=== PATIENT | male | born 1985 | race African-American/Black ===

== ENCOUNTER 2016-02-29 06:15 | Emergency (ER) | payer BC, OTHER ==
[~2016-02-29] VITALS: Ht 188 cm; Wt 111.1 kg
[~2016-02-29 06:15] MED LIST: NAPR550T PO; ORPH100T PO
--- NOTE | 2016-02-29 06:46 | ED.ADGEN ---
Past Medical History Past Medical History: No Pertinent History Past Surgical History: No Surgical History Alcohol Use: Occasionally Drug Use: Marijuana Adult General Chief Complaint Chief Complaint: ANKLE PROBLEM HPI HPI Patient is a 30 year old man, with no significant past medical history, who presents the emergency department with a complaint of left ankle pain for the past 8 days. Patient states that he slipped on ice walking down his outside steps last Tuesday, states that he slid down the stairs, and believes he twisted his ankle when he fell. He did not strike his head or neck, had no loss of consciousness, didn't strike his back but is denying any back pain. He states that he has been favoring the left ankle since that time, had immediate pain and swelling. He has been treating at home with ice and then hot compresses , has been using Tylenol, although has not taken any medication since last night. He states that he is allergic to ibuprofen. Denies any other injuries or complaints, denies any previous injuries to the ankle. He did scrape his ankle when he fell, his tetanus is up-to-date. Review of Systems Review of Systems Constitutional: Denies fever or chills. [] Eyes: Denies change in visual acuity. [] HENT: Denies nasal congestion or sore throat. [] Respiratory: Denies cough or shortness of breath. [] Cardiovascular: Denies chest pain or edema. [] GI: Denies abdominal pain, nausea, vomiting, bloody stools or diarrhea. [] : Denies dysuria. [] Musculoskeletal: Denies back pain, complaining of left ankle pain. Integument: Denies rash. [] Neurologic: Denies headache, focal weakness or sensory changes. [] Endocrine: Denies polyuria or polydipsia. [] Lymphatic: Denies swollen glands. [] Psychiatric: Denies depression or anxiety. [] Current Medications Current Medications Current Medications Medications (Trade) Dose Ordered Sig/Estephania Start Time Stop Time Status Last Admin Dose Admin Acetaminophen (Tylenol) 650 mg 1X ONCE 02/29/16 07:00 02/29/16 07:01 DC 02/29/16 06:38 650 MG Allergies Allergies Allergies Coded Allergies Type Severity Reaction Last Updated Verified ibuprofen Allergy Intermediate hives 10/10/15 Yes Physical Exam Physical Exam Constitutional: Well developed, well nourished, no acute distress, non-toxic appearance. [] HENT: Normocephalic, atraumatic, bilateral external ears normal, oropharynx moist, no oral exudates, nose normal. [] Eyes: PERRLA, EOMI, conjunctiva normal, no discharge. [] Neck: Normal range of motion, no tenderness, supple, no stridor. [] Cardiovascular:Heart rate regular rhythm, no murmur, S1, S2, rubs or gallops. [] Lungs & Thorax: Bilateral breath sounds clear to auscultation, no wheezing, rhonchi, rales. No chest wall tenderness or crepitus. [] Abdomen: Bowel sounds normal, soft, no tenderness, no rebound, no rigidity, no guarding, no masses, no pulsatile masses. [] Skin: Warm, dry, no erythema, no rash. [] Back: No no midline or paraspinal tenderness, no CVA tenderness. [] Extremities: Patient with swelling of the lateral aspect of the left ankle, well -healed abrasion located just below the lateral malleolus, no overlying cellulitis or evidence of infection, swelling extends into the dorsum of the foot especially on the left, patient does have pain with any motion of the ankle , also with palpation of the lateral malleolus, no cyanosis, no clubbing. No other injuries identified, no tenderness of the tib-fib region or the knee. Neurologic: Alert and oriented X 3, normal motor function, normal sensory function, no focal deficits noted. [] Psychologic: Affect normal, judgement normal, mood normal. [] Current Patient Data Vital Signs Vital Signs Date Time Temp Pulse Resp B/P Pulse Ox O2 Delivery O2 Flow Rate FiO2 02/29/16 06:36 98.8 103 20 95 Room Air 98.8 EKG EKG Not indicated. [] Radiology/Procedures Radiology/Procedures [] [facility] [address] [place] [address] IMAGING REPORT Signed PATIENT: ABBY GOMEZ ACCOUNT: [id number] : 1985 LOCATION: ER AGE: 30 SEX: M EXAM [id number] STATUS: REG ER ORD. PHYSICIAN: HERBER MATA DO REASON: Swelling, pain PROCEDURE: ANKLE LEFT 3V; TIBIA FIBULA LEFT Left ankle, 3 views, 02/29/2016: History: Swelling and pain No fracture or dislocation is identified. There is mild soft tissue swelling, particularly over the lateral malleolus. IMPRESSION: No acute bony abnormality is detected. Left tibia and fibula, 2 views, 02/29/2016: No fracture is identified. A small lucency in the medial tibial plateau is probably a subchondral cyst. Mild subcutaneous edema is noted in the lower leg. IMPRESSION: No acute bony abnormality is detected. DICTATED and SIGNED BY: ISACC JAMES MD DATE: 02/29/16 0719 CC: HERBER MATA DO; NO PCP ~ Course & Med Decision Making Course & Med Decision Making Pertinent Labs and Imaging studies reviewed. (See chart for details) Patient's examination is concerning for possible fracture versus high-grade sprain. X-rays obtained of the ankle and tib-fib, no evidence of fracture, soft tissue swelling is identified. I did discuss these findings with patient, he works driving a forklift, I instructed him that he would need to be nonweightbearing for at least the next 3-4 days, he was given crutch walking instructions and was able to crutch walk without issue in the ED. Due to the degree of sprain, the length of time, I gave him follow-up with orthopedics, instructed that he should be cleared by orthopedic returning to work. He has been using naproxen at home which she states has not been adequately controlling his pain, I instructed him to keep it elevated which will assist with the swelling, continue using naproxen, will also give a short course of Davis, patient was given clear and detailed return instructions also medication instructions, and follow-up as stated. Work note was given for 3-4 days, patient discharged home in stable condition crutch walking without difficulty with plan as above. Dragon Disclaimer Dragon Disclaimer This electronic medical record was generated, in whole or in part, using a voice recognition dictation system. Departure Impression: Primary Impression: High ankle sprain of left lower extremity Additional Impression: Contusion Disposition: HOME, SELF-CARE Condition: STABLE Scripts Hydrocodone/Apap 5-325 (Davis 5-325 Tablet)1 Each Tablet1 Tab PO PRN Q6HRS PRN PAIN #8 TAB Ref 0 Prov:ESPERANZA,HERBER M DO 02/29/16 Naproxen 250 Mg [id number] Mg PO BID PRN PAIN #10 Prov:HERBER MATA DO 02/29/16 Problem Qualifiers Primary Impression: High ankle sprain of left lower extremity Encounter type: initial encounter Qualified Code: S93.432A - Sprain of tibiofibular ligament of left ankle, initial encounter Additional Impression: Contusion Encounter type: initial encounter Contusion area: ankle Laterality: left Qualified Code: S90.02XA - Contusion of left ankle, initial encounter HERBER MATA DO Feb 29, 2016 06:45
[2016-02-29] MEDS ORDERED: ACETAMINOPHEN 325 MG TABLET. PO ONE (07:00)
[2016-02-29] MEDS ORDERED: HYDR-971 PO (07:21)
[2016-02-29] MEDS ORDERED: NAPR250T2 PO (07:21)
--- NOTE | 2016-02-29 07:23 | RAD ---
Left ankle, 3 views, 02/29/2016: History: Swelling and pain No fracture or dislocation is identified. There is mild soft tissue swelling, particularly over the lateral malleolus. IMPRESSION: No acute bony abnormality is detected. Left tibia and fibula, 2 views, 02/29/2016: No fracture is identified. A small lucency in the medial tibial plateau is probably a subchondral cyst. Mild subcutaneous edema is noted in the lower leg.
[2016-02-29 07:45] VITALS: BP 157/76
== END 2016-02-29 07:46 | disposition home or self-care (01) ==
LOC: ER 06:47
DX: S93.432A Sprain of tibiofibular ligament of left ankle, initial encounter (principal); F12.10 Cannabis abuse, uncomplicated; Z88.6 Allergy status to analgesic agent; W00.1XXA Fall from stairs and steps due to ice and snow, initial encounter; Y93.01 Activity, walking, marching and hiking; Y92.89 Other specified places as the place of occurrence of the external cause; Y99.8 Other external cause status
CPT/HCPCS: 73590; 73610; 99284

== ENCOUNTER 2017-01-31 17:53 | Emergency (ER) | payer BC ==
[~2017-01-31] VITALS: Ht 188 cm; Wt 108.9 kg
[~2017-01-31 17:53] MED LIST changes: +HYDR-971 PO; +NAPR-682 PO; +NAPR250T6 PO; -NAPR550T PO
[2017-01-31 17:55] VITALS: BP 137/78
--- NOTE | 2017-01-31 18:23 | PHYS DOC ---
Past Medical History Past Medical History: No Pertinent History Past Surgical History: No Surgical History Alcohol Use: Occasionally Drug Use: Marijuana Adult General Chief Complaint Chief Complaint: EYE PROBLEMS HPI HPI Patient is a 31 year old male presents to the emergency department stating that he has having some irritation to his right eye. He states that he was watching TV yesterday when he thought he initially had something in his eye however he states he used Q-tip and walked and did not find any foreign body. He states this morning when he woke up he had to actually get a warm cloth and prior his eye open as it was mattered shut. He does state he has had some congestion and upper respiratory infection however he denies any use of contact lenses. Patient states his tetanus immunization was less than 2 years ago Review of Systems Review of Systems Constitutional: Denies fever or chills [] Eyes: Denies change in visual acuity, C/o redness, and drainage right eye HENT: Denies nasal congestion or sore throat [] Respiratory: Denies cough or shortness of breath [] Cardiovascular: No additional information not addressed in HPI [] GI: Denies abdominal pain, nausea, vomiting, bloody stools or diarrhea [] : Denies dysuria or hematuria [] Musculoskeletal: Denies back pain or joint pain [] Integument: Denies rash or skin lesions [] Neurologic: Denies headache, focal weakness or sensory changes [] Endocrine: Denies polyuria or polydipsia [] All other systems were reviewed and found to be within normal limits, except as documented in this note. Current Medications Current Medications Current Medications Medications (Trade) Dose Ordered Sig/Estephania Start Time Stop Time Status Last Admin Dose Admin Fluorescein Sodium (Ful-Farhana) 1 strip 1X ONCE 01/31/17 18:45 01/31/17 18:46 01/31/17 18:24 1 STRIP Tetracaine HCl (Tetracaine) 1 drop 1X ONCE 01/31/17 18:45 01/31/17 18:46 01/31/17 18:24 1 DROP Allergies Allergies Allergies Coded Allergies Type Severity Reaction Last Updated Verified ibuprofen Allergy Intermediate hives 10/10/15 Yes Physical Exam Physical Exam Constitutional: Well developed, well nourished, no acute distress, non-toxic appearance. [] HENT: Normocephalic, atraumatic, bilateral external ears normal, oropharynx moist, no oral exudates, nose normal. [] Eyes: PERRLA, EOMI, conjunctiva red with yellow discharge noted on the eye lashes Neck: Normal range of motion, no tenderness, supple, no stridor. [] Cardiovascular:Heart rate regular rhythm Lungs & Thorax: no respiratory distress noted Skin: Warm, dry, no erythema, no rash. [] Extremities: No tenderness, no cyanosis, no clubbing, ROM intact, no edema. [] Neurologic: Alert and oriented X 3, normal motor function, normal sensory function, no focal deficits noted. [] Psychologic: Affect normal, judgement normal, mood normal. [] Current Patient Data Vital Signs Vital Signs Date Time Temp Pulse Resp B/P (MAP) Pulse Ox O2 Delivery O2 Flow Rate FiO2 01/31/17 17:55 98.2 87 16 98 Room Air 98.2 EKG EKG [] Radiology/Procedures Radiology/Procedures [] Course & Med Decision Making Course & Med Decision Making Pertinent Labs and Imaging studies reviewed. (See chart for details) No foreign body in to the right eye, upper lid was inverted with no foreign body noted. Tetracaine was placed into the right eye with floor seen strip used with no uptake noted. Patient will be placed on ofloxacin with recommendations for the drops one to 2 twice a day. Recommended good handwashing. Recommended patient to follow up with optical instrument repairer as needed in the next 5-7 days. Signs and symptoms to return back to emergency department has been provided. All questions and concerns have been answered at the patients bedside. He'll be discharged home in stable condition. Patient agrees with discharge instructions treatment regimens and follow-up recommendations. [] Dragon Disclaimer Dragon Disclaimer This electronic medical record was generated, in whole or in part, using a voice recognition dictation system. Departure Departure Impression: Primary Impression: Conjunctivitis, right eye Disposition: 01 HOME, SELF-CARE Condition: STABLE Referrals: NO PCP (PCP) Geronimo DAILEY MD Patient Instructions: Bacterial Conjunctivitis, [id number] Additional Instructions: Activity as tolerated Medication as prescribed Tylenol or for pain and discomfort Keep the eye clean and dry Use warm moist packs to the eyes Followup with optical instrument repairer in 3-5 days Return to emergency department as needed for signs and symptoms that become worse. Scripts Ofloxacin (OCUFLOX) 5 Ml Drops 1-2 DROP OD BID, #1 BOTTLE Prov: SÁNCHEZ CUADRA APRN 01/31/17 Problem Qualifiers Primary Impression: Conjunctivitis, right eye Conjunctivitis type: unspecified Qualified Codes: H10.9 - Unspecified conjunctivitis SÁNCHEZ CUADRA APRN Jan 31, 2017 18:23
[2017-01-31] MEDS ORDERED: OFLO5DRO OD (18:38)
[2017-01-31] MEDS ORDERED: TETRACAINE 0.5% OPHTH SOLUTION 4ML BOTTLE. OD ONE (18:45)
[2017-01-31] MEDS ORDERED: FLUORESCEIN OPHTH TEST STRIP. OD ONE (18:45)
== END 2017-01-31 18:48 | disposition home or self-care (01) ==
LOC: ER 17:53
DX: H10.9 Unspecified conjunctivitis (principal); F12.10 Cannabis abuse, uncomplicated; Z88.6 Allergy status to analgesic agent
CPT/HCPCS: 99283

== ENCOUNTER 2017-02-02 22:01 | Emergency (ER) | payer BC | END 2017-02-02 23:49 | disposition home or self-care (01) | LOC: ER 23:49 | DX: H10.33 Unspecified acute conjunctivitis, bilateral (principal); F12.10 Cannabis abuse, uncomplicated; Z88.8 Allergy status to other drugs, medicaments and biological substances | CPT/HCPCS: 99282; 99283 ==

== ENCOUNTER 2018-08-30 23:26 | Emergency (ER) | payer SELFPAY ==
[~2018-08-30] VITALS: Ht 188 cm; Wt 108.9 kg
[~2018-08-30 23:26] MED LIST changes: +HYDR-3164 PO; -HYDR-971 PO; +OFLO5DRO OD
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
[2018-08-31 02:03] LABS: BILIRUBIN,URINE NEGATIVE (NEG); CLARITY,URINE CLEAR; COLOR,URINE YELLOW; NITRITE,URINE NEGATIVE (NEG); PROTEIN,URINE NEGATIVE (NEG-TRACE)
[2018-08-31 02:11] LABS: BARBITURATES NEG (NEG); BENZODIAZEPINES NEG (NEG); CANNABINOIDS POS (NEG); COCAINE NEG (NEG); METHADONE NEG (NEG); OPIATES NEG (NEG); PHENCYCLIDINE NEG (NEG)
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
[2018-08-31 02:16] LABS: AMPHETAMINE/METHAMPHETAMINE POS (NEG)
[2018-08-31 02:20] LABS: BACTERIA,URINE 0 /HPF (0-FEW); RBC,URINE OCC /HPF (0-2); SQUAMOUS EPITHELIAL CELL,UR FEW /LPF
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
[2018-08-31] MEDS ORDERED: META-21 PO (02:44)
[2018-08-31] MEDS ORDERED: DICL50TA4 PO (02:44)
[2018-08-31 03:00] VITALS: BP 142/79
== END 2018-08-31 03:01 | disposition home or self-care (01) ==
LOC: ER 23:26
DX: S39.012A Strain of muscle, fascia and tendon of lower back, initial encounter (principal); S09.8XXA Other specified injuries of head, initial encounter; J45.909 Unspecified asthma, uncomplicated; Z88.6 Allergy status to analgesic agent; V43.62XA Car passenger injured in collision with other type car in traffic accident, initial encounter; Y93.89 Activity, other specified; Y92.410 Unspecified street and highway as the place of occurrence of the external cause; Y99.8 Other external cause status
CPT/HCPCS: 70450; 72125; 72131; 80307; 81001; 99285